=== PATIENT | female | born 1975 | race Hispanic/Latino ===

== ENCOUNTER 2017-08-08 09:00 | Outpatient (RCR) | payer OTHER ==
[~2017-08-08 09:00] MED LIST: ACETAMINOPHEN325 M1 PO; ASACOL HD800 MG PO; AUGMENTIN 500-1 EACH PO; BENTYL10 MG PO; CIPRO500 MG; CIPRO500 MG PO; CLARITHROMYCIN500 MG PO; DUREZOL5 ML; FLAGYL250 MG; FLAGYL500 MG PO; FLORASTOR250 MG; LEVAQUIN500 MG PO; LIALDA1.2 GM PO; Loratadine PO; MESALAMINE4 GM/60 ML RC; NEXIUM40 MG PO; PEPCID20 MG PO; PRED FORTE1 ML; PREDNISONE20 MG PO; PROBIOTIC COMP1 EAC1 PO; PROBIOTIC COMP1 EACH; QUESTRAN PACKET4 GM PO; SULFASALAZINE500 MG PO; TESSALON PERLE100 MG; TYLENOL WITH C1 EACH PO; UCERIS PO; VIBRAMYCIN100 MG PO; ZOFRAN ODT4 MG; [UNRECOGNIZED DRUG - OTHER] PO
== END 2017-08-25 ==
LOC: PT 09:00
PROVIDERS: ATTEND Podiatrist Foot & Ankle Surgery
DX: M76.61 Achilles tendinitis, right leg (principal); M25.571 Pain in right ankle and joints of right foot; M25.671 Stiffness of right ankle, not elsewhere classified; M62.81 Muscle weakness (generalized)

== ENCOUNTER 2017-09-27 13:47 | Emergency (ER) | payer OTHER ==
[~2017-09-27] VITALS: Ht 167.6 cm; Wt 90.7 kg
--- OUTSIDE RECORDS SUMMARY | 2017-09-27 13:50 | XMS REPORT | Continuity of Care Document ---
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 Effective Date 05 Advance Directives Directive Response Recorded Date/Time Does the patient have an advance directive? No 05/13/15 6:26pm If yes, is advance directive on file with [facility]? No 05/13/15 6:26pm If not on file with [facility] will patient provide a copy? Yes 05/13/15 6:26pm Do you have a Directive to Physician? No 07/31/17 10:48am Do you have a Medical Power of Purchasing Specialist? No 07/31/17 10:48am Do you have an out of hospital Do Not Resuscitate Order? No 07/31/17 10:48am Do you have any special needs we should be aware of? No 07/31/17 10:48am Do you have a support person here with you today? No 07/31/17 10:48am Did patient receive Notice of Privacy Practices? Yes 08/06/17 8:34am Did patient receive patient rights and responsibilities? Yes 08/06/17 8:34am Problems Medical Problem Onset Date Status Pneumonia 05/13/2015 Acute UTI (urinary tract infection) 05/13/2015 Acute Ulcerative colitis 11/18/2014 Acute Medications Current Home Medications Medication Dose Units Route Directions Days Qty Instructions Start Date Acetaminophen 325 Mg Tablet 500 Mg Oral Acetaminophen With Codeine (Tylenol With Codeine #3 Tablet) 1 Each Tablet 300 Mg Oral Benzonatate (Tessalon Perle) 100 Mg Capsule Dicyclomine Hcl (Bentyl) 10 Mg Capsule 10 Mg Oral Q6 Prn Difluprednate (Durezol) 5 Ml Drops Doxycycline Hyclate (Vibramycin) 100 Mg Capsule 100 Mg Oral Every 12 Hours 10 05/17/15 Famotidine (Pepcid) 20 Mg Tablet 20 Mg Oral Twice Daily Before Meals 30 Days 05/17/15 Loratadine 10 Mg Tab 10 Mg Oral Daily 05/17/15 Mesalamine (Lialda) 1.2 Gm Tablet. 4.8 Mg Oral Daily FOR 8WEEKS Ondansetron (Zofran Odt) 4 Mg Tab.rapdis 4 Mg Every 6 Hours Prednisolone Acetate (Pred Forte) 1 Ml Drops.susp Prednisone 20 Mg Tab 20 Mg Oral Daily 5 05/17/15 Sulfasalazine 500 Mg Tab 500 Mg Oral Twice A Day 30 Tab Past Home Medications Medication Directions Ordered Status Amoxicillin/Potassium Clav (Augmentin 500-125 Tablet) 1 Each Tablet, 500 Mg Oral Twice A Day Discontinued Cholestyramine (With Sugar) (Questran Packet) 4 Gm Packet, 4 Gm Oral Three Times A Day Discontinued Ciprofloxacin Hcl (Cipro) 500 Mg Tablet, 500 Mg Oral Every 12 Hours Discontinued Ciprofloxacin Hcl (Cipro) 500 Mg Tablet, 500 Mg Oral Every 12 Hours Discontinued Clarithromycin 500 Mg Tablet, 1000 Mg Oral Twice A Day Discontinued Esomeprazole Magnesium (Nexium) 40 Mg Capsule.dr, 40 Mg Oral Daily Discontinued Floraster , Oral Twice A Day Discontinued Lactobacillus Cmb#7/Fos/Inulin (Probiotic Complex Tablet) 1 Each Tablet, Oral Da Discontinued Levofloxacin (Levaquin) 500 Mg Tablet, 500 Mg Oral Daily Discontinued Mesalamine (Asacol Hd) 800 Mg Tablet.dr, 800 Mg Oral Three Times A Day Discontinued Mesalamine 4 Gm/60 Ml Enema, Gm Rectal Bedtime Discontinued Metronidazole (Flagyl) 250 Mg Tablet, 500 Discontinued Metronidazole (Flagyl) 500 Mg Tablet, 500 Mg Oral Three Times A Day Discontinued Metronidazole (Flagyl) 500 Mg Tablet, 500 Mg Oral Every 8 Hours Discontinued Saccharomyces Boulardii (Florastor) 250 Mg Capsule, 1 Mg Twice A Day Discontinued Uceris , 90 Mg Oral Daily Discontinued Family History Relationship Condition Age at Onset Recorded Date/Time Not Specified Family history of acute myocardial infarction Not Recorded 4:07am 18 Daughter Family history of asthma Not Recorded 11/18/2014 4:03am 32 Mother Family history of asthma Not Recorded 11/18/2014 4:03am 32 Mother Family history of diabetes mellitus Not Recorded 11/18/2014 4:04am 19 Son Family history of asthma Not Recorded 11/18/2014 4:03am Social History Social History Problem Response Recorded Date/Time Onset Date Status Hx Psychiatric Problems No 05/13/2015 6:26pm Not Applicable Not Applicable Hx Eating Disorder No 05/13/2015 6:26pm Not Applicable Not Applicable Hx Substance Use Disorder No 05/13/2015 6:26pm Not Applicable Not Applicable Hx Depression No 05/13/2015 6:26pm Not Applicable Not Applicable Hx Alcohol Use Y - rarely 05/13/2015 6:26pm Not Applicable Not Applicable Hx Substance Use Treatment No 05/13/2015 6:26pm Not Applicable Not Applicable Hx Physical Abuse No 05/13/2015 6:26pm Not Applicable Not Applicable Hospital Discharge Instructions No hospital discharge instruction information available. Plan of Care Prescriptions See Medication Section Functional Status No functional status information available. Allergies, Adverse Reactions, Alerts Allergen Type Severity Reaction Status Last Updated Methylprednisolone Allergy Intermediate rash Active 06/28/16 Ibuprofen Allergy Unknown Active 06/28/16 Immunizations No immunization information available. Vital Signs No vital sign information available. Results No relevant diagnostic test, laboratory data and/or discharge summary information available. Procedures No procedure information available. Encounters Encounter Location Arrival/Admit Date Discharge/Depart Date Attending Provider Discharged Recurring [facility] 08/08/17 9:00am 08/25/17 11:59pm CATIE HOLLAND DPM
[2017-09-27] MEDS ORDERED: ONDANSETRON HCL INJ 2 MG/ML VIAL IV STA (14:44)
[2017-09-27] MEDS ORDERED: MORPHINE SULFATE 2 MG/ML SYR IV STA ×2 (14:44→17:36)
[2017-09-27] MEDS ORDERED: SODIUM CHLORIDE 0.9% 1000ML 1,000 ML IV SCH (14:45)
[2017-09-27 15:07] LABS: BASOPHILS # (AUTO) 0.1 (0.0-0.1); BASOPHILS % 0.5 % (0.0-1.0); EOSINOPHILS # (AUTO) 0.3 (0.0-0.4); HEMATOCRIT 41.5 % (34.2-44.1); HEMOGLOBIN 13.7 g/dL (12.0-16.0); LYMPHOCYTES # (AUTO) 2.4 (1.0-3.2); MEAN CORPUSCULAR VOLUME 84.7 fL (81-99); MONOCYTES # (AUTO) 0.3 (0.2-0.8); MONOCYTES % 3.3 % (4.4-11.3); NEUTROPHILS # (AUTO) 7.3 (2.1-6.9); PLATELET COUNT 288 x10e3/uL (140-360); RED CELL DISTRIBUTION WIDTH 13.5 % (11.7-14.4)
[2017-09-27] MEDS ORDERED: IOPAMIDOL 370 MG/ML 200 ML INFUS..BTL INJ ONE (15:23)
[2017-09-27] MEDS ORDERED: SODIUM CHLORIDE 0.9% 50ML 50 ML ONE (15:23)
[2017-09-27] MEDS ORDERED: DIATRIZOATE MEGL/DIATRIZOA SOD 30 ML BTL PO ONE (15:23)
[2017-09-27 15:28] LABS: ALANINE AMINOTRANSFERASE 100 IU/L (0-55); ALBUMIN/GLOBULIN RATIO 0.9 (0.8-2.0); ALKALINE PHOSPHATASE 100 IU/L (40-150); ANION GAP 14.5 mmol/L (8-16); BLOOD UREA NITROGEN 11 mg/dL (7-26); BUN/CREATININE RATIO 11 (6-25); CALCIUM 10.1 mg/dL (8.4-10.2); CARBON DIOXIDE 22 mmol/L (22-29); CHLORIDE 106 mmol/L (98-107); CREATININE, SERUM 0.99 mg/dL (0.57-1.11); EST GLOMERULAR FILTRATION RATE > 60 ML/MIN (60-); GLUCOSE 99 mg/dL (74-118); POTASSIUM 3.5 mmol/L (3.5-5.1); SODIUM 139 mmol/L (136-145)
--- NOTE | 2017-09-27 17:35 | Diagnostic Imaging Report ---
EXAMINATION: CT of the abdomen and pelvis with contrast. TECHNIQUE: Spiral CT images of the abdomen and pelvis were performed from the lung bases to the lesser trochanters after the intravenous administration of 100 cc of Isovue 370 and the oral administration of dilute Gastrografin. Coronal and sagittal reformatted images were obtained. COMPARISON: CT abdomen and pelvis with contrast 11/17/2014. CT abdomen and pelvis without contrast 06/28/2016 CLINICAL HISTORY:Stomach pain, diffuse cramps, history of colitis DISCUSSION: ABDOMEN/PELVIS: LOWER THORAX:Unremarkable. HEPATOBILIARY: Mild hepatomegaly, which measures 18.0 cm in the right mid clavicular line. Diffuse hepatic steatosis. No focal hepatic lesions. No intra or extrahepatic biliary ductal dilation. GALLBLADDER: Cholecystectomy clips. SPLEEN: No splenomegaly. PANCREAS: No focal masses or ductal dilatation. ADRENALS: No adrenal nodules. KIDNEYS/URETERS: No hydronephrosis, stones, or solid mass lesions. 8 mm fluid density simple cyst in the inferior pole of the right kidney (series 2, image 43). PELVIC ORGANS/BLADDER: Bladder and uterus are unremarkable. No adnexal masses. PERITONEUM/RETROPERITONEUM: No free air or fluid. LYMPH NODES: No intra-abdominal, retroperitoneal, pelvic or inguinal lymphadenopathy. VESSELS: The celiac trunk,superior and inferior mesenteric and bilateral renal arteries are patent The portal, superior mesenteric and splenic veins are patent. GI TRACT: No bowel dilation or evidence of obstruction. No pericolonic inflammatory changes. Appendix is well identified and normal in caliber. Stomach is unremarkable. BONES AND SOFT TISSUE: No aggressive lytic lesion. No soft tissue abnormalities. IMPRESSION: 1. No acute abdominopelvic abnormalities. No CT evidence of colitis. No bowel dilation or evidence of obstruction. 2. Mild hepatomegaly with diffuse hepatic steatosis. No focal lesions. Signed by: Dr. Oc May M.D. on 09/27/2017 5:31 PM
[2017-09-27 17:45] LABS: CLARITY,URINE CLEAR (CLEAR); COLOR,URINE YELLOW (YELLOW); LEUKOCYTE ESTERASE ,URINE TRACE (NEGATIVE); NITRITE,URINE POSITIVE (NEGATIVE); PROTEIN,URINE DIPSTICK NEGATIVE (NEGATIVE)
[2017-09-27 17:46] LABS: BILIRUBIN,URINE NEGATIVE (NEGATIVE); KETONES,URINE NEGATIVE (NEGATIVE); URINE UROBILINOGEN 0.2 mg/dL (0.2 - 1)
[2017-09-27 17:56] LABS: BACTERIA,URINE MODERATE /HPF; EPITHELIAL CELLS,URINE MANY /LPF; RBC,URINE 0-5 /HPF (0-5)
== END 2017-09-27 18:41 | disposition home or self-care (01) ==
LOC: ER 13:47
DX: R10.815 Periumbilic abdominal tenderness (principal); R11.0 Nausea; N30.91 Cystitis, unspecified with hematuria; R19.7 Diarrhea, unspecified; K52.9 Noninfective gastroenteritis and colitis, unspecified
CPT/HCPCS: 36415; 74177; 80053; 81001; 84702; 85025; 99284; J2270; J2405; J7030; Q9967

== ENCOUNTER 2018-08-06 17:13 | Emergency (ER) | payer OTHER ==
[~2018-08-06] VITALS: Ht 167.6 cm; Wt 90.7 kg
--- OUTSIDE RECORDS SUMMARY | 2018-08-06 17:16 | XMS REPORT ---
Author Author [facility] Address Unknown Phone Unavailable Care Team Providers Care Assembler Final Name Role Phone Tangela ZAPATA Unavailable Unavailable Problems This patient has no known problems. Allergies, Adverse Reactions, Alerts This patient has no known allergies or adverse reactions. Medications This patient has no known medications. Results Test Description Test Time Test Comments Text Results Atomic Results Result Comments CT ABDOMEN/PELVIS [place] [address] Patient Name: YOLIS WILL MR #: [id number] : 1975 Age/Sex: 41/F Req #: [id number] Adm Physician: Ordered by: CHI ZAPATA MD Report #: [id number] Location: ER Room/Bed: Procedure: [id number] CT/CT ABDOMEN/PELVIS W Exam Date: 09/27/17 Exam Time: 1640 REPORT STATUS: Signed EXAMINATION: CT of the abdomen and pelvis with contrast. TECHNIQUE: Spiral CT images of the abdomen and pelvis were performed from the lung bases to the lesser trochanters after the intravenous administration of 100 cc of Isovue 370 and the oral administration of dilute Gastrografin. Coronal and sagittal reformatted images were obtained. COMPARISON: CT abdomen and pelvis with contrast 11/17/2014. CT abdomen and pelvis without contrast 06/28/2016 CLINICAL HISTORY:Stomach pain, diffuse cramps, history of colitis DISCUSSION: ABDOMEN/PELVIS: LOWER THORAX:Unremarkable. HEPATOBILIARY: Mild hepatomegaly, which measures 18.0 cm in the right mid clavicular line. Diffuse hepatic steatosis. No focal hepatic lesions. No intra or extrahepatic biliary ductal dilation. GALLBLADDER: Cholecystectomy clips. SPLEEN: No splenomegaly. PANCREAS: No focal masses or ductal dilatation. ADRENALS: No adrenal nodules. KIDNEYS/URETERS: No hydronephrosis, stones, or solid mass lesions. 8 mm fluid density simple cyst in the inferior pole of the right kidney (series 2, image 43). PELVIC ORGANS/BLADDER: Bladder and uterus are unremarkable. No adnexal masses. PERITONEUM/RETROPERITONEUM: No free air or fluid. LYMPH NODES: No intra- abdominal, retroperitoneal, pelvic or inguinal lymphadenopathy. VESSELS: The celiac trunk,superior and inferior mesenteric and bilateral renal arteries are patent The portal, superior mesenteric and splenic veins are patent. GI TRACT: No bowel dilation or evidence of obstruction. No pericolonic inflammatory changes. Appendix is well identified and normal in caliber. Stomach is unremarkable. BONES AND SOFT TISSUE: No aggressive lytic lesion. No soft tissue abnormalities. IMPRESSION: 1. No acute abdominopelvic abnormalities. No CT evidence of colitis. No bowel dilation or evidence of obstruction. 2. Mild hepatomegaly with diffuse hepatic steatosis. No focal lesions. Signed by: Dr. Jennifer Headley M.D. on 09/27/2017 5:31 PM Dictated By: JENNIFER HEADLEY MD [id number] Transcribed By: PARVEZ on 09/27/17 1731 COPY TO: CHI ZAPATA MD
[2018-08-06] MEDS ORDERED: SODIUM CHLORIDE 0.9% 1000ML 1,000 ML IV STA (17:28)
[2018-08-06] MEDS ORDERED: MORPHINE SULFATE INJ 4 MG/ML INJ 1ML IV ONE (17:45)
[2018-08-06] MEDS ORDERED: ONDANSETRON HCL INJ 2MG/ML 2ML 2 MG/ML VIAL IV ONE (17:45)
[2018-08-06] MEDS ORDERED: CIPROFLOXACIN 400 MG/D5W 200ML 200 ML IV SCH (18:00)
[2018-08-06] MEDS ORDERED: METRONIDAZOLE 500MG/NS 100ML 100 ML IV SCH (18:00)
[2018-08-06 18:03] LABS: BASOPHILS # (AUTO) 0.1 (0.0-0.1); BASOPHILS % 0.5 % (0.0-1.0); EOSINOPHILS # (AUTO) 0.3 (0.0-0.4); EOSINOPHILS % 3.7 % (0.0-6.0); HEMATOCRIT 37.2 % (34.2-44.1); HEMOGLOBIN 12.2 g/dL (12.0-16.0); LYMPHOCYTES # (AUTO) 2.5 (1.0-3.2); LYMPHOCYTES % 27.7 % (18.0-39.1); MEAN CORPUSCULAR HEMOGLOBIN 28.1 pg (28-32); MEAN CORPUSCULAR HGB CONC 32.8 g/dL (31-35); MEAN CORPUSCULAR VOLUME 85.7 fL (81-99); MONOCYTES # (AUTO) 0.4 (0.2-0.8); MONOCYTES % 4.3 % (4.4-11.3); NEUTROPHILS # (AUTO) 5.8 (2.1-6.9); NEUTROPHILS % 63.6 % (38.7-80.0); PLATELET COUNT 261 x10e3/uL (140-360); RED BLOOD COUNT 4.34 x10e6/uL (3.6-5.1); RED CELL DISTRIBUTION WIDTH 12.7 % (11.7-14.4)
[2018-08-06 18:08] LABS: BILIRUBIN,URINE NEGATIVE (NEGATIVE); CLARITY,URINE SL CLOUDY (CLEAR); COLOR,URINE YELLOW (YELLOW); KETONES,URINE NEGATIVE (NEGATIVE); LEUKOCYTE ESTERASE ,URINE NEGATIVE (NEGATIVE); NITRITE,URINE POSITIVE (NEGATIVE); PROTEIN,URINE DIPSTICK TRACE (NEGATIVE); URINE UROBILINOGEN 0.2 mg/dL (0.2 - 1)
[2018-08-06 18:09] LABS: PREGNANCY TEST, URINE NEGATIVE (NEGATIVE)
[2018-08-06 18:10] LABS: INR 0.95; PROTHROMBIN TIME 13.2 seconds (11.9-14.5)
[2018-08-06 18:11] LABS: PARTIAL THROMBOPLASTIN TIME 29.5 seconds (23.8-35.5)
[2018-08-06 18:17] LABS: ALANINE AMINOTRANSFERASE 62 IU/L (0-55); ALBUMIN 3.5 g/dL (3.5-5.0); ALBUMIN/GLOBULIN RATIO 0.8 (0.8-2.0); ALKALINE PHOSPHATASE 96 IU/L (40-150); ANION GAP 9.8 mmol/L (8-16); BLOOD UREA NITROGEN 11 mg/dL (7-26); BUN/CREATININE RATIO 12 (6-25); CALCIUM 9.5 mg/dL (8.4-10.2); CARBON DIOXIDE 25 mmol/L (22-29); CHLORIDE 106 mmol/L (98-107); CREATINE KINASE 81 IU/L (29-168); CREATININE, SERUM 0.91 mg/dL (0.57-1.11); EST GLOMERULAR FILTRATION RATE > 60 ML/MIN (60-); GLUCOSE 98 mg/dL (74-118); POTASSIUM 3.8 mmol/L (3.5-5.1); SODIUM 137 mmol/L (136-145)
[2018-08-06 18:17] LABS: BACTERIA,URINE MANY /HPF; RBC,URINE 0-5 /HPF (0-5); WBC,URINE (MAN) 0-5 /HPF (0-5)
--- NOTE | 2018-08-06 18:52 | NUR ---
VERBAL REPORT GIVEN TO JAYCEE BONE.
--- NOTE | 2018-08-06 19:24 | Diagnostic Imaging Report ---
EXAM: CT Abdomen and Pelvis WITH contrast INDICATION: Left lower abdominal pain. Ulcerative colitis. Cholecystectomy. Tubal ligation COMPARISON: September 27, 2017 TECHNIQUE: Abdomen and pelvis were scanned utilizing a multidetector helical scanner from the lung base to the pubic symphysis after administration of IV contrast. Coronal and sagittal reformations were obtained. Routine protocol was performed. Scan was performed when during portal venous phase. IV CONTRAST: 100 mL of Isovue-370 ORAL CONTRAST: Water COMPLICATIONS: None RADIATION DOSE: Total DLP: 761.04 mGy*cm Estimated effective dose: (DLP x 0.015 x size factor) mSv CTDIvol has been reviewed. It is below the limits set by the Radiation Protocol Committee (RPC). Dose modulation, iterative reconstruction, and/or weight based adjustment of the mA/kV was utilized to reduce the radiation dose to as low as reasonably achievable. FINDINGS: LINES and TUBES: None. LOWER THORAX: Unremarkable HEPATOBILIARY: Mild hepatomegaly, which measures 18.0 cm in the right mid clavicular line. Diffuse hepatic steatosis. No focal hepatic lesions. No intra or extrahepatic biliary ductal dilation. GALLBLADDER: Cholecystectomy clips. No wall thickening. SPLEEN: No splenomegaly. PANCREAS: No focal masses or ductal dilatation. ADRENALS: No adrenal nodules. KIDNEYS/URETERS: No hydronephrosis, stones, or solid mass lesions. 8 mm fluid density simple cyst in the inferior pole of the right kidney PELVIC ORGANS/BLADDER: Bladder and uterus are unremarkable. No adnexal masses. PERITONEUM/RETROPERITONEUM: No free air or fluid. LYMPH NODES: No intra-abdominal, retroperitoneal, pelvic or inguinal lymphadenopathy. VESSELS: The celiac trunk,superior and inferior mesenteric and bilateral renal arteries are patent The portal, superior mesenteric and splenic veins are patent. GI TRACT: No bowel dilation or evidence of obstruction. No pericolonic inflammatory changes. Appendix is well identified and normal in caliber. Stomach is unremarkable. Scattered diverticulosis without evidence of diverticulitis. BONES AND SOFT TISSUE: No aggressive lytic lesion. No soft tissue abnormalities. IMPRESSION: 1. Scattered diverticulosis without evidence of diverticulitis. 2. Mild hepatomegaly with diffuse hepatic steatosis. No focal lesions. Signed by: Dr. Conor Shaw M.D. on 08/06/2018 7:21 PM
[2018-08-06] MEDS ORDERED: IOPAMIDOL 370 MG/ML 200 ML INFUS..BTL INJ ONE (22:44)
[2018-08-06] MEDS ORDERED: SODIUM CHLORIDE 0.9% 50ML 50 ML ONE (22:44)
== END 2018-08-06 20:18 | disposition home or self-care (01) ==
LOC: ER 17:13
DX: R10.32 Left lower quadrant pain (principal); R10.12 Left upper quadrant pain; R11.0 Nausea; R19.7 Diarrhea, unspecified; N39.0 Urinary tract infection, site not specified; Z87.19 Personal history of other diseases of the digestive system
CPT/HCPCS: 36415; 74177; 80053; 81001; 81025; 82550; 82553; 83605; 84484; 85025; 85610; 85730; 87040; 87086; 87186; 99284; J0744; J2270; J2405; J7030; Q9967

== ENCOUNTER 2024-05-23 10:57 | Emergency (ER) | payer OTHER ==
[~2024-05-23] VITALS: Ht 167.6 cm; Wt 90.7 kg
[2024-05-23 11:00] VITALS: PULSE 78; RESP 15; TEMP 98; O2SAT 98
[2024-05-23] MEDS: MECLIZINE HCL 12.5 MG TAB PO ONE (11:54)
[2024-05-23] MEDS ORDERED: MECLIZINE HCL 12.5 MG TAB ONE (11:54)
[2024-05-23] MEDS ORDERED: MECLIZINE HCL12.5 MG PO (12:25)
== END 2024-05-23 12:45 | disposition home or self-care (01) ==
LOC: ER 11:11
DX: R42 Dizziness and giddiness (principal); R11.0 Nausea; R51.9 Headache, unspecified; Z87.19 Personal history of other diseases of the digestive system
CPT/HCPCS: 93005; 99283; J8597